=== PATIENT | male | born 1990 | race Caucasian/White ===

== ENCOUNTER 2021-07-05 19:00 | Emergency (ER) | payer MEDICAID, SELFPAY ==
[2021-07-05 19:01] VITALS: BP 166/74; PULSE 89; RESP 16; TEMP 36.1; O2SAT 97; BMI 29.2
--- NOTE | 2021-07-05 19:35 | EX.ED.VIS.EY ---
HPI History of Present Illness Chief Complaint: Eye Problem Informant: patient Narrative Narrative: Patient foreign body in the right cornea. He states he was doing a lot of work on a car 2 days ago. 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 He does not recall getting anything in his eye at that time. But over the next day he started to get irritated. He thought he saw a spot in the eye. He had been using safety glasses the whole time. He went to urgent care. They saw the foreign body and referred him here. He states his vision is just fine there is no change in his visual acuity. No fevers or chills. No headache. PFSH PFSH Medical History no medical history Allergy/AdvReac Type Severity Reaction Status Date / Time No Known Allergies Allergy Verified 07/05/21 19:03 Social History Smoking Status: Current every day smoker tobacco type: cigarettes ROS ROS ED Constitutional Constitutional ED: Denies fever(s) Eyes Eyes: Reports other Details: See history of present illness. ; Denies blurry vision, change in vision or diplopia ENT ENT ED: Denies rhinorrhea Gastrointestinal Gastrointestinal: Denies nausea or vomiting Integumentary Denies Abrasions or rash Neurologic Neurologic: Denies headache(s) EXAM Physical Exam Const Vital Signs: 07/05/21 19:01 Temperature 97.0 F L Temperature Source Temporal Pulse Rate 89 Respiratory Rate 16 Blood Pressure 166/74 H Blood Pressure Mean 104 Pulse Ox 97 Oxygen Delivery Method Room Air Positive well nourished and well developed General Appearance ED: well developed and NAD HEENT HEENT Narrative: No contusions abrasions or external signs of injury. atraumatic; Negative for trauma Eyes Eyes Narrative: There is some mild conjunctival injection on the right. There is a foreign body noted just right side of the cornea near the periphery. Not overlying the pupil. Under slit lamp exam there is a negative Irma sign. We used 2 drops of tetracaine to numb the eye. Q-tip could not remove this. However this is 2 days old. We then use the tip of a 26-gauge needle that on loosened a piece of metal from the region. However there is a deeper rust ring. I did not try to get this out. I do not want to risk perforation. I did fluorescein staining again. He still has negative Irma sign. Neck supple Resp normal respiratory effort Neuro Sensorium / Orientation: alert Skin Lesions: no lesions Rashes: no rashes MDM MDM MDM Narrative Medical decision making narrative: He will have to follow-up with ophthalmology. He has somebody he sees but I will also refer him to Dr. Juan to make sure he has an option. We will get him on antibiotic ointment. We discussed if he has any visual loss, headaches, vomiting or other concerns he should return. Discharge Plan Triage Chief Complaint: Eye Problem ED Provider: Lv Lewis Dx/Rx/DC Orders Clinical Impression: Acute foreign body of cornea, Abrasion, corneal, Corneal rust ring of right eye Instructions: Foreign Object in the Cornea, ED RUST RING Primary Care Provider: Kareen Baldwin Referrals: Dutch Juan MD [STAFF PHYSICIAN] - 1 Day Kareen Baldwin MD [Primary Care Provider] - Disposition Disposition: Home, Self Care
[2021-07-05] MEDS: Erythromycin Base 1 OPTH.TUBE 1 APPLIC RIGHT EYE (19:44)
== END 2021-07-05 19:50 | disposition home or self-care (01) ==
LOC: ED 19:49
PROVIDERS: Emergency Provider Emergency Medicine; PCP Family Medicine
DX: T15.01XA Foreign body in cornea, right eye, initial encounter (principal); F17.210 Nicotine dependence, cigarettes, uncomplicated; X58.XXXA Exposure to other specified factors, initial encounter
CPT/HCPCS: 99282

== ENCOUNTER 2021-11-27 18:50 | Emergency (ER) | payer MEDICAID, SELFPAY ==
[2021-11-27 18:50] VITALS: BP 137/101; PULSE 80; RESP 18; TEMP 36.8; O2SAT 100; BMI 63.0
--- NOTE | 2021-11-27 19:35 | ED.VIS.GI ---
HPI HPI - GI History of Present Illness Chief Complaint: GI Bleed Narrative Narrative: 30-year-old male presenting with nausea, vomiting, diarrhea. He states he had some crab dip on Wednesday and on Wednesday he started having nausea and vomiting. He states he woke up that evening and felt crampy diffuse abdominal pain. He started to have diarrhea which has been persistent. He now localizes the pain to the right lower quadrant. Denies urinary complaints. He does state that he has had some blood in his stools now. He does not have lightheadedness or dizziness. He is not on oral anticoagulation. Patient has not had a fever. Patient has no abdominal surgery history. He states he is not had any exotic travel or exotic food. He states that he did swim in a river the other day but did not drink any water. Denies any recent antibiotics use. PFSH PFSH Medical History no medical history Home Medications ondansetron 4 mg PO Q8H PRN #14 tab 11/27/21 [Rx Last Taken Unknown] Allergy/AdvReac Type Severity Reaction Status Date / Time No Known Allergies Allergy Verified 11/27/21 18:53 Social History Smoking Status: Current every day smoker tobacco type: cigarettes ROS ROS ED Constitutional Constitutional ED: Denies chills or fever(s) ENT ENT ED: Denies rhinorrhea or sore throat Cardiovascular Cardiovascular: Denies chest pain or palpitations Respiratory/Chest Respiratory/Chest: Denies cough or dyspnea Gastrointestinal Gastrointestinal: Reports abdominal pain, diarrhea, nausea and vomiting Genitourinary Genitourinary ED: Denies dysuria or hematuria Musculoskeletal Musculoskeletal: Denies arthralgias or myalgias Integumentary Denies rash Neurologic Neurologic: Denies headache(s) or weakness Psychiatric Psychiatric: Denies anxiety or depression EXAM Physical Exam Const Vital Signs: 11/27/21 18:50 11/27/21 20:56 Temperature 98.3 F Temperature Source Temporal Pulse Rate 80 65 Respiratory Rate 18 16 Blood Pressure 137/101 H 129/80 H Blood Pressure Mean 113 96 Pulse Ox 100 100 Oxygen Delivery Method Room Air Room Air Positive well nourished General Appearance ED: NAD; Negative for pallor HEENT Reports moist mucous membranes normocephalic and atraumatic Eyes PERRL and EOMs intact bilaterally General Eye ED: Negative for pale conjunctiva or scleral icterus Resp normal respiratory effort and clear to auscultation bilaterally Cardio regular rate and regular rhythm GI non-distended Auscultation: normoactive bowel sounds Palpation: soft and tender RLQ Neuro CN's II-XII intact bilaterally and no sensory deficits noted Sensorium / Orientation: alert, oriented to person, oriented to place and oriented to time Motor Exam: strength 5/5 throughout Psych mental status grossly normal Skin General Skin Exam: Negative for jaundice or pallor Lesions: no lesions Rashes: no rashes MDM MDM MDM Narrative Medical decision making narrative: With nausea, vomiting, diarrhea. He has no known sick contacts. No fevers. Patient given IV fluids, morphine, Zofran. Obtained lab work and his CBC shows slight leukocytosis of 13.4. Hemoglobin stable at 16.6. Platelets 204. Creatinine slightly elevated at 1.34. LFTs within normal limits. Urinalysis negative for infection. CT of the abdomen pelvis is obtained with IV contrast. Which shows Moderate-marked colitis involving the proximal half of the colon, possibly milder involvement of distal colon. On reevaluation the patient states he is very much improved and his nausea has subsided. He states he is feeling very hungry. He wants to go get a milkshake and something to eat. His repeat abdominal exam is benign. I counseled him to start with clear liquid diet advance as tolerated and try to keep it bland. He is indicated given a prescription for Zofran and he is to drink small amounts of water frequently. Impression: 1. Gastroenteritis 2. Leukocytosis Lab Data Attestation: I reviewed the patient's lab results. Labs: Laboratory Results - last 24 hr 11/27/21 11/27/21 11/27/21 19:05 19:05 19:45 WBC 13.4 H RBC 6.58 H Hgb 16.6 H Hct 51.1 MCV 77.7 L MCH 25.2 L MCHC 32.5 RDW Std Deviation 41.1 RDW Coeff of Angel 15.4 H Plt Count 302 MPV 12.0 Immature Gran % (Auto) 0.400 Neut % (Auto) 73.3 H Lymph % (Auto) 17.6 L [place] % (Auto) 7.4 Eos % (Auto) 0.9 Baso % (Auto) 0.4 Absolute Neuts (auto) 9.8 H Absolute Lymphs (auto) 2.35 Nucleated RBC % 0 Sodium 135 L Potassium 3.9 Chloride 97 L Carbon Dioxide 33.0 H Anion Gap 5 BUN 11 Creatinine 1.34 H Estim Creat Clear Calc 85.85 Est GFR (MDRD) Af Amer 80 Est GFR (MDRD) Non-Af 66 BUN/Creatinine Ratio 8.2 L Glucose 120 H Calcium 9.3 Total Bilirubin 0.30 AST 11 L ALT 29 Alkaline Phosphatase 80 Total Protein 7.8 Albumin 3.5 Globulin 4.3 H Albumin/Globulin Ratio 0.8 L Urine Color Yellow Urine Clarity Clear Urine pH 8.0 Ur Specific [place] 1.010 Urine Protein Negative Urine Glucose (UA) Normal Urine Ketones Negative Urine Occult Blood Negative Urine Nitrite Negative Urine Bilirubin Negative Urine Urobilinogen Normal Ur Leukocyte Esterase Negative Urine RBC 0 SEEN Urine WBC 0 SEEN Ur Squamous Epith Cells 0 SEEN Urine Bacteria 0 SEEN Urine Mucus 0 SEEN Radiography Diagnostic Testing: Clinical Impression(s) from Imaging Studies Abdomen/Pelvis CT 11/27/21 19:54 IMPRESSION: 1. Moderate-marked colitis involving the proximal half of the colon, possibly milder involvement of distal colon. 2. Slight intrapelvic fluid. 3. Normal appendix. 4. Bilateral L5 pars defects and grade 1 L5 anterolisthesis. Electronically Signed: Robyn Rodriguez MD at 20:18 EDT Reading Location ID and State: [facility] / [place] Tel , Service support , ADDENDUM: 11/27/212035 IMPRESSION: 1. Moderate-marked colitis involving the proximal half of the colon, possibly milder involvement of distal colon. 2. Slight intrapelvic fluid. 3. Normal appendix. 4. Bilateral L5 pars defects and grade 1 L5 anterolisthesis. N.B. : Avila Soriano MD, confirmed on 11/27/2021 20:29:51 (ET) that the healthcare facility has received the radiology report. Electronically Signed: Robyn Rodriguez MD at 20:18 EDT , Discharge Plan Triage Chief Complaint: GI Bleed ED Provider: Avila Soirano Dx/Rx/DC Orders Instructions: ED Gastroenteritis, Noninfectious Prescriptions: New ondansetron 4 mg tablet,disintegrating 4 mg PO Q8H PRN (Reason: nausea and vomiting) Qty: 14 RF: 0 Primary Care Provider: Bev Juan Referrals: Bev Juan MD [Primary Care Provider] - Disposition Disposition: Home, Self Care
[2021-11-27] MEDS: 0.9% Normal Saline 1,000 ML 1000 ML IV (19:44)
[2021-11-27] MEDS: Ondansetron 4 MG/2 ML Vial IV (19:44)
[2021-11-27] MEDS: Morphine 4 MG/ML Syringe IV (19:44)
--- NOTE | 2021-11-27 19:54 | CT_ITS ---
ACR Level 3 findings have been noted. An addendum which confirms receipt of the report will follow. EXAM: CT ABDOMEN AND PELVIS WITH INTRAVENOUS CONTRAST CLINICAL INDICATION: RLQ abdominal pain TECHNIQUE: Helically acquired images were obtained of the abdomen and pelvis with intravenous contrast. This CT exam was performed using one or more of the following dose reduction techniques: automated exposure control, adjustment of the mA and/or kV according to patient size, and/or use of iterative reconstruction technique. This report was created using [employer] report generation technology. RADIATION DOSE: CTDIvol = 8.52 mGy, DLP = 536.00 mGy-cmContrast: IV 100mL Isovue-300 COMPARISON: None. FINDINGS: LOWER THORAX: Unremarkable. Lung bases are clear. No cardiomegaly. No significant pericardial effusion. ABDOMEN: LIVER: Unremarkable. Homogeneous. No focal mass. GALLBLADDER AND BILE DUCTS: Unremarkable. No calcified gallstones. No gallbladder distention or wall edema. No intra- or extrahepatic biliary ductal dilation. PANCREAS: Unremarkable. No focal cystic or solid mass. SPLEEN: Unremarkable. Normal size without focal cystic or solid mass. ADRENALS: Unremarkable. No nodules. KIDNEYS AND URETERS: Unremarkable. Normal renal size and position. No hydronephrosis. STOMACH AND BOWEL: There is moderate-marked wall thickening and mucosal enhancement of the proximal half of the colon to at least the level of the distal transverse colon-splenic flexure. Probably also milder involvement of the more distal colon and rectum, they are almost collapsed. No stomach or bowel distention. PELVIS: APPENDIX: No evidence of acute appendicitis. BLADDER: Unremarkable. REPRODUCTIVE: Unremarkable as visualized. No mass. ABDOMEN and PELVIS: INTRAPERITONEAL SPACE: Slight intrapelvic fluid. No free air. BONES/JOINTS: Marked disc space narrowing at L5-S1, mild anterolisthesis of L5 with respect to S1, bilateral pars defects. No suspicious lytic or blastic abnormality. SOFT TISSUES: Unremarkable. No discrete abdominal or pelvic wall hernia. VASCULATURE: Unremarkable. Abdominal aorta is non-dilated. LYMPH NODES: Unremarkable. No enlarged lymph nodes. CT/Abdomen/Pelvis W IV Cont ONLY IMPRESSION: 1. Moderate-marked colitis involving the proximal half of the colon, possibly milder involvement of distal colon. 2. Slight intrapelvic fluid. 3. Normal appendix. 4. Bilateral L5 pars defects and grade 1 L5 anterolisthesis. Electronically Signed: Robyn Rodriguez MD at 20:18 EDT ,
[2021-11-27 19:59] LABS: Bacteria 0 SEEN /hpf (None Seen); Mucous, Urine 0 SEEN /hpf (<or=2+); Red Blood Cells-Urine 0 SEEN /hpf (0-5); Squamous Epithelial Cells - UA 0 SEEN /hpf (0-5); White Blood Cells 0 SEEN /hpf (0-5)
[2021-11-27 20:00] LABS: Absolute Lymphocyte Count 2.35 X10^3/uL (0.83-4.51); Absolute Neutrophil Count 9.8 X10^3/uL (2.0-7.7); Basophil# 0.06 X10^3/uL; Basophil% 0.4 % (0-1); Eosinophil# 0.12 X10^3/uL; Eosinophils% 0.9 % (0-5); Hematocrit 51.1 % (40-54); Hemoglobin 16.6 g/dL (13.0-16.5); Lymphocyte # 2.35 X10^3/ul (0.83-4.51); Lymphocyte % 17.6 % (19-41); Mean Corp Hgb Conc 32.5 g/dL (32-36); Mean Corpuscular Hgb 25.2 pg (27.0-32.0); Mean Corpuscular Volume 77.7 fL (80-94); Monocyte# 0.99 X10^3/uL; Monocyte% 7.4 % (0-10); NRBC Flagged by Analyzer 0 % (0-5); Neutrophil # 9.77 X10^3/uL (2.7-7.7); Neutrophil % 73.3 % (47-70); Platelet Count 302 K/mm3 (150-450); RBC Distribution Width CV 15.4 % (11.6-14.6); RBC Distribution Width SD 41.1 fl (35.1-43.9); Red Blood Count 6.58 M/mm3 (4.6-6.2); White Blood Count 13.4 K/mm3 (4.4-11.0)
[2021-11-27 20:03] LABS: Color, Urine Yellow (Yellow); Glucose, Dipstick Normal (Normal); Ketone-Dipstick Negative (Negative); Leukocyte Esterase-Dipstick Negative /ul (Negative); Nitrite-Dipstick Negative (Negative); Occult Blood-Urine Negative /ul (Negative); Protein-Dipstick Negative (Negative); Urine Bilirubin Dipstick Negative (Negative); Urine Clarity Clear (Clear); Urine Urobilinogen Normal (Normal)
[2021-11-27 20:18] LABS: ALB/GLOB Ratio 0.8 RATIO (0.9-2.4); AST(SGOT) 11 U/L (15-37); Alanine Aminotransfer ALT/SGPT 29 U/L (16-61); Albumin, Serum 3.5 g/dL (3.2-5.0); Alkaline Phosphatase 80 U/L (45-117); Anion Gap 5 (5-15); BUN 11 mg/dL (7-18); BUN/Creat Ratio 8.2 RATIO (10-20); Calcium,Total 9.3 mg/dL (8.5-10.1); Chloride 97 mmol/L (98-107); Creatinine, Serum 1.34 mg/dL (0.70-1.30); EST Glomerular Filtration Rate 66 mL/min (>60); Est Glom Filt Rate - Afr Amer 80 mL/min (>60); Estimated Creatinine Clearance 85.85 ml/min; Globulin 4.3 g/dL (2.2-4.2); Glucose 120 mg/dL (74-106); Potassium 3.9 mmol/L (3.5-5.1); Protein, Total 7.8 g/dL (6.4-8.2); Sodium Level 135 mmol/L (136-145)
[2021-11-27 20:56] VITALS: BP 129/80; PULSE 65; RESP 16; O2SAT 100
== END 2021-11-27 21:59 | disposition home or self-care (01) ==
PROVIDERS: Emergency Provider Student in an Organized Health Care Education/Training Program; PCP Family Medicine; Visit Provider Student in an Organized Health Care Education/Training Program
DX: K52.9 Noninfective gastroenteritis and colitis, unspecified (principal); D72.829 Elevated white blood cell count, unspecified; F17.210 Nicotine dependence, cigarettes, uncomplicated
CPT/HCPCS: 74177; 80053; 81001; 85025; 96361; 96374; 96375; 99282; J7030; Q9967; A4216; J2405

== ENCOUNTER → 2023-10-20 | Outpatient (CLI) | payer MEDICAID, SELFPAY ==
[2023-10-20 12:22] LABS: Absolute Lymphocyte Count 1.95 X10^3/uL (0.83-4.51); Absolute Neutrophil Count 4.6 X10^3/uL (2.0-7.7); Basophil# 0.03 X10^3/uL; Basophil% 0.4 % (0-1); Eosinophils% 1.3 % (0-5); Hematocrit 47.4 % (40-54); Hemoglobin 15.1 g/dL (13.0-16.5); Lymphocyte # 1.95 X10^3/ul (0.83-4.51); Lymphocyte % 24.5 % (19-41); Mean Corp Hgb Conc 31.9 g/dL (32-36); Mean Corpuscular Volume 81.6 fL (80-94); Mean Platelet Vol. 12.3 fl (6.2-12.0); Monocyte# 1.23 X10^3/uL; Monocyte% 15.4 % (0-10); NRBC Flagged by Analyzer 0 % (0-5); Neutrophil # 4.63 X10^3/uL (2.7-7.7); Platelet Count 221 K/mm3 (150-450); RBC Distribution Width CV 14.8 % (11.6-14.6); RBC Distribution Width SD 43.4 fl (35.1-43.9); Red Blood Count 5.81 M/mm3 (4.6-6.2)
[2023-10-20 12:38] LABS: Vitamin D,25 Hydroxy 13.8 ng/mL
[2023-10-20 13:06] LABS: ALB/GLOB Ratio 0.9 RATIO (0.9-2.4); AST(SGOT) 63 U/L (15-37); Alanine Aminotransfer ALT/SGPT 90 U/L (16-61); Alkaline Phosphatase 92 U/L (45-117); Anion Gap 7 (5-15); BUN 20 mg/dL (7-18); BUN/Creat Ratio 15.6 RATIO (10-20); Calcium,Total 8.9 mg/dL (8.5-10.1); Chloride 101 mmol/L (98-107); Cholesterol 244 mg/dL (200); Creatinine, Serum 1.28 mg/dL (0.70-1.30); EST Glomerular Filtration Rate 69 mL/min (>60); Est Glom Filt Rate - Afr Amer 83 mL/min (>60); Globulin 4.4 g/dL (2.2-4.2); Glucose 105 mg/dL (74-106); High Density Lipoprotein 50 mg/dL; Potassium 3.9 mmol/L (3.5-5.1); Protein, Total 8.4 g/dL (6.4-8.2); Sodium Level 134 mmol/L (136-145); Thyroid Stim Hormone (TSH) 1.68 uIU/mL (0.358-3.74); Triglycerides 202 mg/dL; Very Low Density Lipoprotein 40 mg/dL (5-40)
== END | disposition home or self-care (01) ==
LOC: BIMLAB 08:12
PROVIDERS: PCP Internal Medicine; Referring Provider Internal Medicine; Visit Provider Internal Medicine
DX: F41.9 Anxiety disorder, unspecified (principal); F32.A Depression, unspecified; Z13.6 Encounter for screening for cardiovascular disorders
CPT/HCPCS: 36415; 80053; 80061; 82306; 84443; 85025

== ENCOUNTER → 2024-02-02 | Outpatient (CLI) | payer MEDICAID, SELFPAY ==
[2024-02-02 13:00] LABS: AST(SGOT) 39 U/L (15-37); Alanine Aminotransfer ALT/SGPT 69 U/L (16-61); Albumin, Serum 4.1 g/dL (3.2-5.0); Alkaline Phosphatase 77 U/L (45-117); Bilirubin, Direct 0.17 mg/dL (0.00-0.30); Cholesterol 222 mg/dL (200); Globulin 4.1 g/dL (2.2-4.2); High Density Lipoprotein 49 mg/dL; Protein, Total 8.2 g/dL (6.4-8.2); Triglycerides 134 mg/dL; Very Low Density Lipoprotein 27 mg/dL (5-40)
[2024-02-02 13:07] LABS: Vitamin D,25 Hydroxy 44.2 ng/mL
== END | disposition home or self-care (01) ==
LOC: BIMLAB 09:14
PROVIDERS: PCP Internal Medicine; Referring Provider Nurse Practitioner; Visit Provider Nurse Practitioner
DX: E78.5 Hyperlipidemia, unspecified (principal); R74.8 Abnormal levels of other serum enzymes; E55.9 Vitamin D deficiency, unspecified
CPT/HCPCS: 36415; 80061; 80076; 82306

== ENCOUNTER 2024-08-29 09:08 | Emergency (ER) | payer OTHER, SELFPAY ==
[2024-08-29 09:09] VITALS: BP 155/107; PULSE 121; RESP 16; TEMP 36.2; O2SAT 97; BMI 39.8
--- NOTE | 2024-08-29 09:21 | EX.ED.DYSGE1 ---
HPI History of Present Illness Chief Complaint: Seizure Detail of Chief Complaint: Possible seizure Informant: patient Narrative Narrative: Patient presents to the emergency department via EMS from work. 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 He states his entire right side felt weird. He thinks the symptoms kind of started to moved to the opposite side. He was able to sit down therefore he had no fall or injury. He does not think he lost consciousness at any point but states that he had a hard time controlling his right arm and get it to stop shaking. This lasted a couple of minutes. He denies headache. He has had no prior episode like this. He has no seizure history. He tells me he had RSV last week and was sick for about 2 weeks. Patient does not have history of migraines. Currently his symptoms mostly resolved. He thinks he does have some anxiety. [facility] Medical History Methamphetamine addiction ETOH abuse Home Medications ?Medication ?Instructions ?Recorded ?Last Taken ?Type blood pressure monitor #1 ea 07/11/24 Unknown Rx semaglutide 0.25 mg or 0.5 mg (2 0.5 mg subcut QWEEK 07/11/24 Unknown History mg/3 mL) subcutaneous pen injector Allergy/AdvReac Type Severity Reaction Status Date / Time No Known Allergies Allergy Verified 08/29/24 09:09 Family History Grandfather Heart disease Lung cancer Aunt Alcoholism Uncle Alcoholism Surgical History No pertinent past surgical history Social History adopted: No household members: family current occupational status: employed current occupation: [employer] pets and animals: Yes pets and animals: cat(s) and dog(s) sexually active: No Smoking Status: Current every day smoker tobacco type: e-cigarettes Tobacco: How many years used: 12 Electronic Cigarette Use: with nicotine second hand exposure: No quit status: considering quitting alcohol intake: former year quit: 2022 substance use type: former substance user Date of last use: 01/2023 and methamphetamine caffeine: Yes (3) Type: coffee frequency: 3-4 times per week quang/religious: Caodaism seatbelt use: always do you feel safe at home: Yes ROS ROS ED Review of Systems ROS Unobtainable: other Constitutional Constitutional ED: Reports lethargy; Denies chills, fever(s), sweats or weight loss Eyes Eyes: Denies blurry vision, change in vision or diplopia ENT ENT ED: Reports other Details: Lower lip wound ; Denies rhinorrhea or sore throat Cardiovascular Cardiovascular: Denies chest pain, orthopnea or racing heartbeat Respiratory/Chest Respiratory/Chest: Denies cough, dyspnea, dyspnea on exertion, orthopnea or sputum Gastrointestinal Gastrointestinal: Denies abdominal pain, diarrhea, nausea or vomiting Genitourinary Genitourinary ED: Denies dysuria, hematuria or urinary frequency Musculoskeletal Musculoskeletal: Denies arthralgias, back pain, myalgias or neck pain Integumentary Denies abscess, Abrasions or rash Neurologic Neurologic: Reports other Details: Possible seizure, right side shaking and weakness ; Denies headache(s) or weakness Psychiatric Psychiatric: Denies anxiety, depression or suicidal thoughts Endocrine Endocrinology: Denies polydipsia, polyphagia or polyuria Hematologic/Lymphatic Hematologic/Lymphatic: Denies easy bleeding, easy bruising or lymphadenopathy Allergic/Immunologic Allergic/Immunologic ED: Denies mouth swelling, tongue swelling or urticaria EXAM Physical Exam Const Vital Signs: 08/29/24 09:09 08/29/24 10:09 08/29/24 11:00 Temperature 97.1 F L Temperature Source Oral Pulse Rate 121 H 98 92 Respiratory Rate 16 14 14 Blood Pressure 155/107 H 159/90 H 123/76 H Blood Pressure Mean 123 113 91 Pulse Ox 97 99 99 Oxygen Delivery Method Room Air Positive well nourished and well developed General Appearance ED: well developed and NAD HEENT Reports TM's clear and moist mucous membranes HEENT Narrative: Small bite wound noted to the send to her lower lip. More of a contusion without significant laceration. No dental trauma. No bite wounds to the tongue. normocephalic and atraumatic; Negative for trauma or tenderness Tympanic Membrane ED: Yes TM's clear Eyes PERRL and EOMs intact bilaterally General Eye ED: Negative for pale conjunctiva or scleral icterus Neck no lymphadenopathy, supple and no JVD General: Negative for tenderness Chest Wall inspection of chest normal and palpation of chest normal Chest: Negative for tenderness Resp normal respiratory effort and clear to auscultation bilaterally Effort and Inspection: Negative for respiratory distress or pain with movement Auscultation: Negative for rhonchi, wheezes or diminished lung sounds Cardio regular rate, regular rhythm, S1 normal heart sound, S2 normal heart sound and no murmurs Peripheral Pulses: pulses 2+ throughout GI normal to inspection, nondistended, normoactive bowel sounds, soft to palpation, non-tender, non-distended and no masses Back/Spine no CVA tenderness and no thoracic nor lumbar tenderness Extremity normal to inspection General Extremety ED: Negative for edema General Extremity: Negative for edema Neuro oriented x3, CN's II-XII intact bilaterally, no sensory deficits noted and gait normal Sensorium / Orientation: awake, alert, oriented to person, oriented to place and oriented to time Motor Exam: strength 5/5 throughout and strength abnormal Psych mental status grossly normal Skin no rashes or lesions noted and no wounds MDM MDM MDM Narrative Medical decision making narrative: Patient presents to the emergency department with possible seizure. He thinks he recalls the events of abnormal twitching of his right arm that kind of went into his right jaw and right leg. He remembers laying down. He did not think he lost consciousness but later talk to his boss who told him that he may have been out for like 10 to 15 minutes. Patient has really no complaints on arrival to the ER. Patient had IV line established. CT a of the head and neck obtained were unremarkable. CT scan of the brain without contrast was unremarkable. CBC with differential obtained showed a white count of 16.1 with hemoglobin 16.1 and platelet count of 321. Chemistries unremarkable other than a slightly depressed potassium of 3.3 for which I did give him 40 mEq of potassium chloride p.o. Patient does have a elevated white blood cell count of 16.1. Suspect this may be reactive as he has not really had any infectious signs or symptoms other than he had RSV [address] incidentally they also did note some bilateral maxillary sinus inflammation. Patient not having any sinus pain. I did discuss case with neurologist Dr. Red who will follow up patient as an outpatient for EEG testing and possibly MRI to evaluate further. Did not feel he warranted seizure medications. Patient will be advised not to drive or swim alone or work at [place] until follow-up with neurology and clearance by them. Lab Data Attestation: I reviewed the patient's lab results. Labs: Laboratory Results - last 24 hr 08/29/24 08:57 WBC 16.1 H RBC 5.99 Hgb 16.1 Hct 51.2 MCV 85.5 MCH 26.9 L MCHC 31.4 L RDW Std Deviation 44.1 H RDW Coeff of Angel 14.3 Plt Count 321 MPV 11.9 Immature Gran % (Auto) 0.700 Neut % (Auto) 50.4 Lymph % (Auto) 37.3 [place] % (Auto) 10.0 Eos % (Auto) 0.9 Baso % (Auto) 0.7 Absolute Neuts (auto) 8.1 H Absolute Lymphs (auto) 6.01 H Nucleated RBC % 0 Differential Comment COMMENT Diff Path Review May foll BUN 21 H Creatinine 1.4 H Est GFR (MDRD) Non-Af 68 BUN/Creatinine Ratio 15.1 Glucose 107 H Total Bilirubin 0.56 AST 56 H ALT 78 H Alkaline Phosphatase 91 Total Protein 9.0 H Albumin 4.9 Globulin 4.0 Albumin/Globulin Ratio 1.2 Radiography Diagnostic Testing: Clinical Impression(s) from Imaging Studies Head/Neck CTA 08/29/24 09:32 IMPRESSION: 1. Unremarkable CTA of the head and neck. 2. Bilateral maxillary sinus inflammation. Reading Location: [place] [id number] EKG Initial EKG: Attestation: I personally reviewed and interpreted this EKG as follows: Comments: Sinus tachycardia with ventricular rate of 107 bpm with old septal infarct Discharge Plan Triage Chief Complaint: Seizure ED Provider: Chante Flaherty Dx/Rx/DC Orders Clinical Impression: Seizure Instructions: ED Seizure New [facility] Adult Prescriptions: No Action semaglutide 0.25 mg or 0.5 mg (2 mg/3 mL) pen injector 0.5 mg subcut QWEEK Rx Instructions: for 4 weeks (DME) blood pressure monitor Kit See Rx Instructions .Route Qty: 1 0RF Rx Instructions: As directed Primary Care Provider: Mariza Mishra Referrals: Mariza Mishra MD [Primary Care Provider] - Arpan Gipson MD [[facility]] - 3-5 Days Print Language: Burkinan Disposition Disposition: Home, Self Care
--- NOTE | 2024-08-29 09:24 | EKG12_ITS ---
Test Reason : SEIZURE Blood Pressure : */* mmHG Vent. Rate : 107 BPM Atrial Rate : 107 BPM P-R Int : 172 ms QRS Dur : 80 ms QT Int : 320 ms P-R-T Axes : 29 7 -1 degrees QTcB Int : 427 ms Sinus tachycardia Borderline poor rwave progression Reconfirmed by Quinn Ramirez ([id number]), photograph editor JOSÉ LOPEZ ([id number]) on 08/30/2024 8:20:33 AM Referred By: Confirmed By: Quinn Ramirez
--- NOTE | 2024-08-29 09:32 | CT_ITS ---
PROCEDURE: CTA HEAD AND NECK WITH CONTRAST REASON FOR EXAM: POSSIBLE FIRST-TIME SEIZURE. TECHNIQUE: CTA imaging of the head and neck from the aortic arch to the skull vertex with intravenous contrast. Contiguous axial scans of 3.75 mm slice thicknesses with sagittal and coronal reconstruction images. 3D reconstructions. One or more dose reduction techniques were utilized (e.g., automated exposure control, adjustment of mA and/or kv according to patient size, use of iterative reconstruction technique). Contrast: Isovue 370. 98 mL. COMPARISON: No relevant prior. FINDINGS: Aortic Arch: Normal size and branching pattern. No significant atherosclerotic plaque. Brachiocephalic and Subclavians: Unremarkable RIGHT Carotid: Right CCA: Unremarkable. Right ICA: Unremarkable. Right ECA: Unremarkable. LEFT Carotid: Left CCA: Unremarkable. Left ICA: Unremarkable. Left ECA: Unremarkable. Vertebrals: Left dominant.. Arise from the subclavians. Both vertebrals form the basilar. RIGHT Vertebral: Unremarkable. LEFT Vertebral: Unremarkable. No intracranial aneurysms or large vascular malformations are identified. Anterior cerebral arteries: Unremarkable. Middle cerebral arteries: Unremarkable. Basilar artery: Unremarkable. Posterior cerebral arteries: Unremarkable. Other major branches of the posterior circulation: Unremarkable. Major venous structures: Unremarkable. Other findings: No lymphadenopathy. Lung apices are clear. Bones are unremarkable. Moderate mucoperiosteal thickening in the bilateral maxillary sinuses. CT/CTA Head AND Neck W/ Contrast IMPRESSION: 1. Unremarkable CTA of the head and neck. 2. Bilateral maxillary sinus inflammation. Reading Location: [place] [id number]
[2024-08-29 09:42] LABS: Absolute Lymphocyte Count 6.01 X10^3/uL (0.83-4.51); Absolute Neutrophil Count 8.1 X10^3/uL (2.0-7.7); Basophil# 0.11 X10^3/uL; Basophil% 0.7 % (0-1); Eosinophil# 0.15 X10^3/uL; Eosinophils% 0.9 % (0-5); Hematocrit 51.2 % (40-54); Hemoglobin 16.1 g/dL (13.0-16.5); Lymphocyte # 6.01 X10^3/ul (0.83-4.51); Lymphocyte % 37.3 % (19-41); Mean Corp Hgb Conc 31.4 g/dL (32-36); Mean Corpuscular Hgb 26.9 pg (27.0-32.0); Mean Corpuscular Volume 85.5 fL (80-94); Mean Platelet Vol. 11.9 fl (6.2-12.0); Monocyte# 1.62 X10^3/uL; NRBC Flagged by Analyzer 0 % (0-5); Neutrophil # 8.12 X10^3/uL (2.7-7.7); Neutrophil % 50.4 % (47-70); POSITIVE DIFFERENTIAL YES; POSITIVE MORPHOLOGY YES; Platelet Count 321 K/mm3 (150-450); RBC Distribution Width CV 14.3 % (11.6-14.6); RBC Distribution Width SD 44.1 fl (35.1-43.9); Red Blood Count 5.99 M/mm3 (4.6-6.2); White Blood Count 16.1 K/mm3 (4.4-11.0)
[2024-08-29 09:45] LABS: Differential Indicated SCAN CRITERIA MET
[2024-08-29 10:09] VITALS: BP 159/90; PULSE 98; RESP 14; O2SAT 99
[2024-08-29 11:00] VITALS: BP 123/76; PULSE 92; RESP 14; O2SAT 99
[2024-08-29 11:42] VITALS: BP 135/69; PULSE 103; RESP 16; TEMP 36.6; O2SAT 98
[2024-08-29 12:00] VITALS: BP 122/72; PULSE 90; RESP 14; O2SAT 99
[2024-08-29] MEDS: Potassium Chloride Oral Tablet 20 MEQ 40 MEQ PO (12:36)
[2024-08-29 13:07] LABS: ALB/GLOB Ratio 1.2 RATIO (0.9-2.4); AST(SGOT) 57 U/L (<=37); Alanine Aminotransfer ALT/SGPT 80 U/L (<=46); Alkaline Phosphatase 90 U/L (40-129); Anion Gap 31 (5-15); BUN 21 mg/dL (4-19); Calcium 10.6 mg/dL (7.6-11.0); Carbon Dioxide 12.6 mmol/L (22.0-29.0); Chloride 95 mmol/L (96-108); Creatinine, Serum 1.4 mg/dL (0.8-1.3); EST Glomerular Filtration Rate 66 (>60); Estimated Creatinine Clearance 102.99 ml/min; Globulin 4.1 g/dL (2.2-4.2); Glucose 106 mg/dL (70-99); Potassium 3.5 mmol/L (3.3-5.1); Protein, Total 9.1 g/dL (5.9-8.4); Sodium Level 139 mmol/L (133-145); Total Bilirubin 0.57 mg/dL (0.00-1.30)
[2024-08-30 13:30] LABS: Pathologist Review Reviewed
== END 2024-08-29 12:46 | disposition home or self-care (01) ==
PROVIDERS: Emergency Provider Emergency Medicine; PCP Internal Medicine; Visit Provider Emergency Medicine
DX: R56.9 Unspecified convulsions (principal); F17.210 Nicotine dependence, cigarettes, uncomplicated; J32.0 Chronic maxillary sinusitis
CPT/HCPCS: 70496; 70498; 80053; 85025; 93005; 99284; Q9967

== ENCOUNTER → 2024-09-27 | Outpatient (CLI) | payer OTHER, SELFPAY ==
--- NOTE | 2024-09-27 09:26 | RAD_ITS ---
EXAM: Two-view orbits CLINICAL HISTORY: History of metal in eyes. COMPARISON: None. TECHNIQUE: Two-view orbits performed, pre MRI. RAD/Orbits for Foreign Body IMPRESSION: No intraorbital metal is seen. The visualized portions of the paranasal sinuses and mastoid air cells appear c lear. No acute osseous process is seen. Reading Location: [id number]
[2024-09-27 10:46] LABS: Hematocrit 47.9 % (40-54); Hemoglobin 15.6 g/dL (13.0-16.5); Mean Corp Hgb Conc 32.6 g/dL (32-36); Mean Platelet Vol. 12.2 fl (6.2-12.0); Platelet Count 277 K/mm3 (150-450); RBC Distribution Width CV 14.3 % (11.6-14.6); RBC Distribution Width SD 42.9 fl (35.1-43.9); Red Blood Count 5.77 M/mm3 (4.6-6.2); White Blood Count 7.1 K/mm3 (4.4-11.0)
[2024-09-27 10:59] LABS: Hemoglobin A1c 5.3 % (<=5.6)
[2024-09-27 11:20] LABS: Ammonia 25.9 umol/L (16-60)
[2024-09-27 11:21] LABS: ALB/GLOB Ratio 1.3 RATIO (0.9-2.4); AST(SGOT) 52 U/L (<=37); Alanine Aminotransfer ALT/SGPT 70 U/L (<=46); Albumin, Serum 4.5 g/dL (3.5-5.0); Alkaline Phosphatase 80 U/L (40-129); Anion Gap 10 (5-15); BUN 24 mg/dL (4-19); BUN/Creat Ratio 19.1 RATIO (10-20); Calcium,Total 9.6 mg/dL (7.6-11.0); Carbon Dioxide 26.2 mmol/L (21.0-32.0); Chloride 99 mmol/L (98-108); Creatinine, Serum 1.27 mg/dL (0.70-1.20); EST Glomerular Filtration Rate 77 (>60); Globulin 3.5 g/dL (2.2-4.2); Glucose 100 mg/dL (70-99); Magnesium 2.2 mg/dL (1.5-2.2); Potassium 4.5 mmol/L (3.3-5.1); Sodium Level 136 mmol/L (133-145); Total Bilirubin 0.46 mg/dL (0.00-1.30)
== END | disposition home or self-care (01) ==
PROVIDERS: PCP Internal Medicine; Referring Provider Psychiatry & Neurology Neurology; Visit Provider Psychiatry & Neurology Neurology
DX: G40.909 Epilepsy, unspecified, not intractable, without status epilepticus (principal); R73.9 Hyperglycemia, unspecified; Z98.890 Other specified postprocedural states
CPT/HCPCS: 36415; 70030; 80053; 82140; 82542; 83036; 83735; 85027; 95819

== ENCOUNTER → 2024-10-09 | Outpatient (CLI) | payer OTHER, SELFPAY ==
--- NOTE | 2024-10-09 07:08 | MRI_ITS ---
PROCEDURE: BRAIN W/WO CONTRAST 10/09/2024 REASON FOR EXAM: GEN SZ OF FOCAL ONSET (BEGAN WITH R ARM CLENCHING) TECHNIQUE: Brain MRI without and with intravenous contrast with additional dedicated imaging of the IACs. CONTRAST: 23 mL of IV Clariscan COMPARISON: 08/29/2024 FINDINGS: No diffusion restriction to suggest acute/subacute ischemia. No evidence of acute intracranial hemorrhage, midline shift or mass effect. No blooming artifact to suggest chronic microhemorrhage. Cerebral volume is maintained. No hydrocephalus. No parenchymal signal abnormalities. No MR evidence of mesial temporal sclerosis. Mild polypoid bilateral maxillary mucosal thickening. Mastoid air cells are clear. Globes are intact. No pathologic enhancement. MRI/Brain W/WO Contrast IMPRESSION: No acute intracranial process, parenchymal signal abnormality or pathologic enh ancement. Reading Location: [facility]
== END | disposition home or self-care (01) ==
PROVIDERS: PCP Internal Medicine; Referring Provider Psychiatry & Neurology Neurology; Visit Provider Psychiatry & Neurology Neurology
DX: G40.909 Epilepsy, unspecified, not intractable, without status epilepticus (principal)
CPT/HCPCS: 70553; A9575

== ENCOUNTER → 2025-06-13 | Outpatient (CLI) | payer OTHER, SELFPAY ==
[2025-06-13 09:49] LABS: Hematocrit 47.1 % (40-54); Hemoglobin 15.2 g/dL (13.0-16.5); Immature Granulocytes Count 0.030 X10^3/uL (0.0-0.0); Mean Corp Hgb Conc 32.3 g/dL (32-36); Mean Corpuscular Volume 81.2 fL (80-94); Mean Platelet Vol. 11.3 fl (6.2-12.0); NRBC Flagged by Analyzer 0 % (0-5); Platelet Count 219 K/mm3 (150-450); RBC Distribution Width CV 14.5 % (11.6-14.6); RBC Distribution Width SD 42.5 fl (35.1-43.9); Red Blood Count 5.80 M/mm3 (4.6-6.2); White Blood Count 7.0 K/mm3 (4.4-11.0)
[2025-06-13 10:34] LABS: AST(SGOT) 46 U/L (<=37); Alanine Aminotransfer ALT/SGPT 66 U/L (<=46); Albumin, Serum 4.5 g/dL (3.5-5.0); Alkaline Phosphatase 77 U/L (40-129); Anion Gap 13 (5-15); BUN 19 mg/dL (4-19); BUN/Creat Ratio 17.1 RATIO (10-20); Calcium,Total 9.5 mg/dL (7.6-11.0); Carbon Dioxide 24.1 mmol/L (21.0-32.0); Chloride 99 mmol/L (98-108); Cholesterol 270 mg/dL (<=200); Globulin 3.3 g/dL (2.2-4.2); Glucose 101 mg/dL (70-99); Low Density Lipoprotein Calc. 176 mg/dL; Potassium 4.1 mmol/L (3.3-5.1); Triglycerides 187 mg/dL; Very Low Density Lipoprotein 37 mg/dL (5-40); Vitamin D,25 Hydroxy 16.1 ng/mL (30-100); cholesterol:hdl ratio screen 4.53
[2025-06-17 09:07] LABS: HEPATITIS B SURFACE AG Negative (Negative); Hep C Antibodies Non Reactive (Non Reactive); Trileptal-Oxcarbazepine 12 ug/mL (10-35)
== END | disposition home or self-care (01) ==
LOC: LAB 08:35
PROVIDERS: Psychiatry & Neurology Neurology; PCP Internal Medicine; Referring Provider Internal Medicine; Visit Provider Internal Medicine
DX: E66.9 Obesity, unspecified (principal); G40.909 Epilepsy, unspecified, not intractable, without status epilepticus; F41.9 Anxiety disorder, unspecified; F32.A Depression, unspecified; E78.2 Mixed hyperlipidemia; R68.82 Decreased libido; E55.9 Vitamin D deficiency, unspecified; R74.8 Abnormal levels of other serum enzymes
CPT/HCPCS: 36415; 80053; 80061; 80074; 82306; 82542; 84402; 85025